=== PATIENT | male | born 1995 | race Hispanic/Latino ===

== ENCOUNTER 2018-06-14 11:46 | Emergency (ER) | payer SELFPAY ==
[2018-06-14] MEDS ORDERED: ONDANSETRON HCL 4 MG/2 ML VIAL ONE (12:26)
[2018-06-14] MEDS ORDERED: SODIUM CHLORIDE 0.9% 1000ML 1,000 ML IV ONE (12:26)
[2018-06-14 12:27] LABS: BASOPHILS % (AUTO) 0.9 % (0.0-5.0); EOSINOPHILS % (AUTO) 3.1 % (0.0-8.0); HEMATOCRIT 48.2 % (42-54); LYMPHOCYTES % (AUTO) 28.7 % (21.0-51.0); MEAN CORPUSCULAR HEMOGLOBIN 31.1 pg (27.0-33.0); MEAN CORPUSCULAR VOLUME 91.7 fL (79-99); MONOCYTES % (AUTO) 10.2 % (3.0-13.0); NEUTROPHILS % (AUTO) 57.1 % (40.0-77.0); PLATELET COUNT (AUTO) 256 K/uL (130-400); RED BLOOD CELL COUNT(AUTO) 5.25 MIL/uL (4.50-6.20); RED CELL DISTRIBUTION WIDTH 12.6 % (11.0-15.5); WHITE BLOOD COUNT (AUTO) 6.8 K/uL (4.8-10.8)
[2018-06-14] MEDS ORDERED: MORPHINE SULFATE 4 MG/1ML SYG ONE (12:27)
[2018-06-14 12:34] LABS: APPEARANCE,URINE Clear (CLEAR); BILIRUBIN,URINE Negative (NEGATIVE); COLOR,URINE Yellow (YELLOW); GLUCOSE, URINE (UA) Negative (NEGATIVE); KETONES,URINE Negative (NEGATIVE); LEUKOCYTE ESTERASE ,URINE Negative (NEGATIVE); NITRATE,URINE Negative (NEGATIVE); OCCULT BLOOD,URINE Negative (NEGATIVE); PROTEIN,URINE Negative (NEGATIVE); UROBILINOGEN,URINE 0.2 mg/dL (0.2-1.0)
[2018-06-14 12:44] LABS: POTASSIUM 4.2 mmol/L (3.5-5.1)
[2018-06-14 12:48] LABS: ALBUMIN 4.3 g/dL (3.5-5.0); BILIRUBIN,TOTAL 0.2 mg/dL (0.2-1.0)
[2018-06-14] MEDS ORDERED: IOHEXOL-350 75 ML VIAL IV ONE (12:54)
== END 2018-06-14 14:26 | disposition home or self-care (01) ==
LOC: EDH 11:46
DX: R10.30 Lower abdominal pain, unspecified (principal); R11.2 Nausea with vomiting, unspecified
CPT/HCPCS: 36415; 74177; 80053; 81003; 82150; 83690; 85025; 96361; 96374; 96375; 99285; J2270; J2405; J7030; Q9967

== ENCOUNTER 2019-09-16 16:49 | Emergency (ER) | payer OTHER ==
[2019-09-16] MEDS ORDERED: IPRATROPIUM/ALBUTEROL SULFATE 3 ML SOLUTION IH ONE (17:39)
[2019-09-16] MEDS ORDERED: METHYLPREDNISOLONE SOD SUCC 125MG/2ML VIAL ONE (17:59)
== END 2019-09-16 18:28 | disposition home or self-care (01) ==
LOC: EDH 16:49
DX: J45.20 Mild intermittent asthma, uncomplicated (principal)
CPT/HCPCS: 71046; 94640; 96372; 99284; J2930

== ENCOUNTER 2024-05-09 19:15 | Emergency (ER) | payer SELFPAY ==
[~2024-05-09] VITALS: Ht 172.7 cm; Wt 78.0 kg
[2024-05-09] MEDS: 0.9%NACL 1000ML 1,368 ML IV ONE (21:33)
[2024-05-09 21:58] VITALS: BP 112/79; PULSE 80; RESP 18; TEMP 97.8; O2SAT 99
== END 2024-05-09 22:00 | disposition home or self-care (01) ==
LOC: EDH 19:15
DX: E86.0 Dehydration (principal)
CPT/HCPCS: 99285; J7030